=== PATIENT | female | born 1960 | race Caucasian/White ===

== ENCOUNTER → 2022-11-19 | Day surgery (SDC) | payer OTHER | END | disposition home or self-care (01) | LOC: FMAMMOTONE 08:12 | PROVIDERS: ATTEND Family Medicine | PROC: 0HBU3ZX Excision of Left Breast, Percutaneous Approach, Diagnostic (ICD-10-PCS; principal; 2022-11-19) | DX: N60.22 Fibroadenosis of left breast (principal); N64.89 Other specified disorders of breast; R92.0 Mammographic microcalcification found on diagnostic imaging of breast | CPT/HCPCS: 19081; 76098-TC-FY; 87899; 88305-TC; A4648 ==

== ENCOUNTER 2023-12-09 16:36 | Emergency (ER) | payer OTHER ==
[2023-12-09 16:51] VITALS: BP 146/62; PULSE 86; RESP 18; TEMP 98.6; BMI 25.7
== END 2023-12-09 17:59 | disposition home or self-care (01) ==
LOC: JERFT 16:36
PROC: 2W3FX1Z Immobilization of Left Hand using Splint (ICD-10-PCS; principal; 2023-12-09)
DX: S52.572A Other intraarticular fracture of lower end of left radius, initial encounter for closed fracture (principal); W01.0XXA Fall on same level from slipping, tripping and stumbling without subsequent striking against object, initial encounter; Y99.0 Civilian activity done for income or pay
CPT/HCPCS: 73110-TC-LT-FY; 73130-TC-LT-FY; 99283-25

== ENCOUNTER 2023-12-17 10:42 | Emergency (ER) | payer OTHER ==
[2023-12-17 12:21] VITALS: BP 136/65; PULSE 84; RESP 18; TEMP 98.3; BMI 25.6
[2023-12-17] MEDS: IBUPROFEN 600 MG TABLET (FP) PO ONE (12:55)
[2023-12-17] MEDS ORDERED: IBUPROFEN 600 MG TABLET (FP) PO ONE (12:56)
== END 2023-12-17 13:31 | disposition home or self-care (01) ==
LOC: JERFT 10:42
DX: M25.532 Pain in left wrist (principal); S52.572D Other intraarticular fracture of lower end of left radius, subsequent encounter for closed fracture with routine healing; W01.0XXD Fall on same level from slipping, tripping and stumbling without subsequent striking against object, subsequent encounter
CPT/HCPCS: 73110-TC-LT-FY; 99283-25